=== PATIENT | female | born 1975 | race Caucasian/White ===

== ENCOUNTER 2019-09-25 09:17 | Emergency (ER) | payer MEDICAID ==
[~2019-09-25] VITALS: Ht 144.8 cm; Wt 49.0 kg
[2019-09-25 10:25] LABS: CLARITY URINE CLEAR (CLEAR); COLOR URINE YELLOW (YELLOW); KETONES URINE NEGATIVE (NEGATIVE); LEUKOCYTE ESTERASE URINE NEGATIVE (NEGATIVE); NITRITE URINE NEGATIVE (NEGATIVE); OCCULT BLOOD URINE 1+ (NEGATIVE); PROTEIN URINE NEGATIVE (NEGATIVE); SPECIFIC GRAVITY URINE 1.017 (1.005-1.030); UROBILINOGEN URINE 0.2 E.U./dL (0.2-1.0)
[2019-09-25 11:37] LABS: CHLORIDE 108 mEq/L (98-107)
[2019-09-25] MEDS ORDERED: KETOROLAC 30MG/ML VIAL IM ONE (12:00)
[2019-09-25 12:54] VITALS: BP 108/67
== END 2019-09-25 12:56 | disposition home or self-care (01) ==
LOC: ER 09:17
DX: M54.5 Low back pain (principal); R10.31 Right lower quadrant pain
CPT/HCPCS: 36415; 80053; 81003; 81025; 96372; 99283; J1885

== ENCOUNTER 2020-08-10 18:26 | Emergency (ER) | payer MEDICAID, OTHER ==
[~2020-08-10] VITALS: Ht 162.6 cm; Wt 60.0 kg
[2020-08-10 18:58] VITALS: BP 162/84
[2020-08-10] MEDS ORDERED: KETOROLAC 60MG/2ML VIAL IM ONE (19:00)
[2020-08-10] MEDS ORDERED: IBUP-2028 PO (19:53)
[2020-08-10] MEDS ORDERED: T3 PO (19:53)
== END 2020-08-10 20:35 | disposition home or self-care (01) ==
LOC: ER 18:26
DX: M54.5 Low back pain (principal)
CPT/HCPCS: 72100; 81025; 96372; 99283; J1885

== ENCOUNTER 2023-08-04 14:23 | Emergency (ER) | payer MEDICAID, OTHER ==
[~2023-08-04] VITALS: Ht 144.8 cm; Wt 49.0 kg
[~2023-08-04 14:23] MED LIST: IBUP-2028 PO; T3 PO
[2023-08-04 14:42] VITALS: O2SAT 98
[2023-08-04] MEDS ORDERED: IBUP-1523 MT (17:03)
[2023-08-04] MEDS ORDERED: TOPUD MT (17:03)
[2023-08-04] MEDS ORDERED: AZIT250T12 MT (17:03)
[2023-08-04] MEDS ORDERED: DEXT30SU17 MT (17:03)
[2023-08-04 17:14] VITALS: BP 124/70; PULSE 81; RESP 16; TEMP 98
== END 2023-08-04 17:15 | disposition home or self-care (01) ==
LOC: ER 15:29
DX: J40 Bronchitis, not specified as acute or chronic (principal); E78.00 Pure hypercholesterolemia, unspecified
CPT/HCPCS: 71045; 99283

== ENCOUNTER 2023-10-10 19:55 | Emergency (ER) | payer MEDICAID ==
[~2023-10-10] VITALS: Ht 142.2 cm; Wt 49.0 kg
[~2023-10-10 19:55] MED LIST changes: +AZIT250T12 MT; +DEXT30SU17 MT; +IBUP-1523 MT; +TOPUD MT
[2023-10-10 19:58] VITALS: O2SAT 98
[2023-10-10 20:38] LABS: BASOPHILS % 0.5 % (0.0-2.0); EOSINOPHILS % 1.3 % (0.0-5.0); HEMATOCRIT. 36.9 % (36.0-48.0); HEMOGLOBIN. 12.4 g/dL (12.0-16.0); MEAN CORPUSCULAR HEMOGLOBIN 29.9 pg (28.0-32.0); MEAN CORPUSCULAR HGB CONC 33.4 g/dL (31.0-37.0); MEAN CORPUSCULAR VOLUME 89.4 fL (81.0-99.0); MEAN PLATELET VOLUME 7.2 fl (7.4-10.4); MONOCYTES % 8.6 % (2.0-8.0); NEUTROPHILS % 55.6 % (40.0-76.0); PLATELET 437 x1000/uL (130-400); RED BLOOD CELL COUNT 4.13 mill/uL (4.2-5.4); RED CELL DISTRIBUTION WIDTH 13.4 % (11.6-14.6); WHITE BLOOD COUNT 10.8 x1000/uL (4.5-11.0)
[2023-10-10 20:43] LABS: CHLORIDE 105 mEq/L (98-107); POTASSIUM 3.7 mEq/L (3.5-5.1); SODIUM 140 mEq/L (136-145)
[2023-10-10 20:44] LABS: CARBON DIOXIDE 29 mEq/L (21-32)
[2023-10-10 20:45] LABS: CALCIUM 10.4 mg/dL (8.7-10.4)
[2023-10-10 20:50] LABS: CREATININE 0.7 mg/dL (0.6-1.0); GLUCOSE 114 mg/dL (70-105); UREA NITROGEN BLOOD 16 mg/dL (9-23)
[2023-10-10 20:55] LABS: TROPONIN I HIGH SENSITIVITY < 4 ng/L (3.0-34)
[2023-10-10 22:20] VITALS: BP 133/69; PULSE 85; RESP 16; TEMP 98.2
== END 2023-10-10 23:59 | disposition home or self-care (01) ==
LOC: ER 19:55
DX: R07.89 Other chest pain (principal); M79.602 Pain in left arm; E78.00 Pure hypercholesterolemia, unspecified; Z79.899 Other long term (current) drug therapy
CPT/HCPCS: 36415; 71046; 80048; 84484; 85025; 93005; 99285